=== PATIENT | male | born 1945 | race Caucasian/White ===

== ENCOUNTER → 2020-09-27 | Outpatient (CLI) | payer OTHER ==
[~2020-09-27] MED LIST: ATORVASTATIN CA20 MG PO; FISH OIL 1,001000 M3 PO; LOW DOSE ASPIRI81 M1 PO; NEURONTIN 300M300 M2 PO; NEXIUM40 MG PO; TYLENOL325 MG PO; VITAMINC500 PO
== END ==
LOC: LAB 08:20
PROVIDERS: ATTEND Ophthalmology
DX: Z01.812 Encounter for preprocedural laboratory examination (principal); Z20.822 Contact with and (suspected) exposure to COVID-19

== ENCOUNTER → 2020-10-24 | Outpatient (CLI) | payer OTHER | LOC: LAB 09:56 | PROVIDERS: ATTEND Ophthalmology | DX: Z01.812 Encounter for preprocedural laboratory examination (principal); Z20.822 Contact with and (suspected) exposure to COVID-19 ==

== ENCOUNTER 2020-10-27 06:06 | Day surgery (SDC) | payer OTHER ==
[~2020-10-27] VITALS: Ht 180.3 cm; Wt 104.3 kg
--- NOTE | ~2020-10-27 | O ---
[facility] [place] [address] OPERATIVE REPORT Name: ISSAC CANTU Dinora Room #: DEP [facility]#: [id number] Admission: 10/27/20 Attend Phys: Issac Nino MD Discharge: 10/27/20 Date of : 45 Report #: [id number] THIS REPORT FOR: cc: Tess Larios MD,Tess Nino,Issac Tai MD ~ DOC #: [id number] cc: Tess Larios MD, Neena Woods MD DATE OF SERVICE: 10/27/2020 SURGEON: Issac Nino MD BISTRO ATTENDANT: None. PREOPERATIVE DIAGNOSIS: Bilateral lower lid ectropion. POSTOPERATIVE DIAGNOSIS: Bilateral lower lid ectropion. OPERATION PERFORMED: Bilateral lower lid ectropion repair. ANESTHESIA: Local with IV sedation. COMPLICATIONS: None. INDICATIONS FOR PROCEDURE: This patient has bilateral acquired lower lid ectropion with chronic tearing, keratopathy and discharge. The current procedures are undertaken in order to improve the patient's visual function, lacrimal outflow, and level of comfort. Informed consent was obtained to include but not limit to the risk of loss of vision, bleeding, infection, scarring, failure to improve the problem and need for further surgery. DESCRIPTION OF OPERATION: The patient was taken to the operating room where 2% Xylocaine with epinephrine mixed with equal parts of 0.75% Marcaine with Wydase was administered transcutaneously and transconjunctivally to each lower lid and lateral canthal area. The patient was then prepped and draped in the usual sterile fashion. A Raiza clamp was then used to clamp the left lateral canthus following which a sharp canthotomy and cantholysis were performed. The tarsal strip was prepared laterally, removing the lash bearing portion of the redundant lid margin and the redundant tarsal plate. Hemostasis was achieved with a monopolar cautery, as it was throughout the case. The tarsal strip was then secured to the internal portion of the lateral orbital tubercle with two interrupted 5-0 Prolene sutures. The lateral canthal angle was sharply reformed as the subcutaneous structures and the skin were closed with multiple interrupted 6-0 plain gut sutures. [facility] [address] [place] [address] OPERATIVE REPORT Name: ISSAC CANTU V Room #: DEP [facility]#: [id number] Admission: 10/27/20 Attend Phys: Issac Nino MD Discharge: 10/27/20 Date of : 45 Report #: [id number] Attention was then turned to the right side where the same procedure was performed. The wounds were cleaned and dressed with ophthalmic antibiotic ointment. The patient was then transported to the recovery area, having tolerated the procedure well with no anesthetic or operative complications being noted. MD DEDRA Matthew/MICHAEL/WALESKA By: Issac Nino MD /haley
[2020-10-27 07:55] VITALS: BP 140/89
== END 2020-10-27 09:45 | disposition home or self-care (01) ==
LOC: OR 06:06 → TBA 06:07 → OR 09:31
PROVIDERS: ATTEND Ophthalmology
DX: H02.105 Unspecified ectropion of left lower eyelid (principal); H02.102 Unspecified ectropion of right lower eyelid; E78.5 Hyperlipidemia, unspecified; K21.9 Gastro-esophageal reflux disease without esophagitis; F17.210 Nicotine dependence, cigarettes, uncomplicated; Z87.442 Personal history of urinary calculi; Z85.828 Personal history of other malignant neoplasm of skin; Z96.652 Presence of left artificial knee joint; Z98.41 Cataract extraction status, right eye; Z98.42 Cataract extraction status, left eye
CPT/HCPCS: 50010; 50101; 50386; 50398; 51636; 56527; 56531; 62110; 62850; 70005

== ENCOUNTER → 2020-11-30 | Outpatient (CLI) | payer OTHER ==
[~2020-11-30] MED LIST changes: +GREEN TEA250 MG PO; +MILK THISTLE150 MG PO; +VITAMIN D325 MC3 PO
== END ==
LOC: LAB 08:38
PROVIDERS: ATTEND Student in an Organized Health Care Education/Training Program
DX: Z01.812 Encounter for preprocedural laboratory examination (principal); Z20.822 Contact with and (suspected) exposure to COVID-19

== ENCOUNTER 2020-12-01 06:41 | Day surgery (SDC) | payer OTHER ==
[~2020-12-01] VITALS: Ht 180.3 cm; Wt 102.1 kg
--- NOTE | ~2020-12-01 | O ---
[facility] [place] [address] OPERATIVE REPORT Name: PEPEISSAC Dinora Room #: 150-5 [facility]..#: [id number] Admission: 12/01/20 Attend Phys: Issac Nino MD Discharge: Date of : 45 Report #: [id number] THIS REPORT FOR: cc: Tess Larios MD,Tess Nino,Issac Tai MD ~ DOC #: [id number] cc: Tess Larios MD, Radames Nino MD DATE OF SERVICE: 12/01/2020 BOTTOM BUFFER: None. PREOPERATIVE DIAGNOSIS: Bilateral upper lid ptosis with superior visual field defects both eyes. POSTOPERATIVE DIAGNOSIS: Bilateral upper lid ptosis with superior visual field defects both eyes. OPERATION PERFORMED: Bilateral upper lid functional ptosis repair. BOTTOM BUFFER: None. ANESTHESIA: Local with IV sedation. COMPLICATIONS: None. INDICATIONS FOR PROCEDURE: This patient has bilateral upper lid ptosis with superior visual field loss both eyes. Visual field testing demonstrates dense superior visual defects. Retesting with the upper lid elevated shows an improvement in visual field loss of over 30% and in excess of 12 degrees. The current procedure is being undertaken in order to improve the patient's visual function. Informed consent was obtained to include but not limited to the risk of loss of vision, bleeding, infection, scarring, failure to improve the problem and need for further surgery, such as adjustment of lid height. DESCRIPTION OF PROCEDURE: The patient was taken to the operating room, where 2% Xylocaine with epinephrine mixed with equal parts of 0.75% Marcaine with Wydase was administered transcutaneously to each upper lid. The patient was then prepped and draped in the usual sterile fashion. An upper lid crease incision was then made bilaterally and the dissection was carried down until the orbital septum was identified. The orbital septum was [facility] [address] [place] [address] OPERATIVE REPORT Name: ISSAC CANTU V Room #: 150-5 [facility]#: [id number] Admission: 12/01/20 Attend Phys: Issac Nino MD Discharge: Date of : 45 Report #: [id number] then cleared and the preaponeurotic fat identified. The levator aponeurosis was then disinserted from the anterior surface of the tarsal plate and dissected free in the avascular [place]'s muscle plane. The aponeurosis was then advanced and reattached to the anterior surface of the tarsal plate with interrupted mattress 6-0 Novafil sutures on each side, adjusting for height and contour. The redundant aponeurosis was then amputated. The incision was then closed with multiple interrupted 6-0 chromic sutures that were used to recreate an upper lid crease. The skin was closed with a running 6-0 plain gut suture. The wound was then cleaned and dressed with ophthalmic antibiotic ointment followed by a Telfa pad. The patient was transported to the recovery area, having tolerated the procedure well with no anesthesia or operative complications being noted. MD DEDRA Matthew/YESSICA By: [id number] Issac Nino MD /nt
[2020-12-01 09:00] VITALS: BP 137/91
== END 2020-12-01 10:15 | disposition home or self-care (01) ==
LOC: OR 06:41 → TBA 06:41 → OR 10:15
PROVIDERS: ATTEND Ophthalmology
DX: H02.413 Mechanical ptosis of bilateral eyelids (principal); H53.462 Homonymous bilateral field defects, left side; H53.461 Homonymous bilateral field defects, right side; E78.5 Hyperlipidemia, unspecified; K21.9 Gastro-esophageal reflux disease without esophagitis; F17.220 Nicotine dependence, chewing tobacco, uncomplicated; Z87.442 Personal history of urinary calculi; Z85.828 Personal history of other malignant neoplasm of skin; Z98.890 Other specified postprocedural states; Z79.899 Other long term (current) drug therapy; Z96.652 Presence of left artificial knee joint; Z98.41 Cataract extraction status, right eye; Z98.42 Cataract extraction status, left eye
CPT/HCPCS: 50010; 50101; 50386; 50398; 51636; 56528; 56531; 62110; 62850; 70005